=== PATIENT | female | born 2005 | race Caucasian/White ===

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

== ENCOUNTER 2025-01-11 10:05 | Emergency (ER) | payer BC, OTHER ==
[2025-01-11 10:18] VITALS: TEMP 97.6
--- NOTE | 2025-01-11 10:40 | ERPHSYRPT ---
- History of Present Illness Time Seen by Provider: 01/11/25 10:15 Historian: patient Exam Limitations: no limitations Patient Subjective Stated Complaint: pt c/o of medial epigastric chest pain that radiates under darvin breasts Triage Nursing Assessment: Pt brought to the ER by her step mom, vitals wnl, rates pain as 7/10, pulses normal, skin n/w/d, hx of open heart as an , no difficulty breathing, still has gall bladder, pain woke her from sleeping, doesn't appear to be in any distress Physician History: 19-year-old female with history of tetralogy of Fallot repair presented in the ER with complaint of substernal chest pain waking her from sleep this morning almost 4 to 5 hours ago, moderate intensity sharp nature, no significant aggravating or relieving factors. Reports no associated palpitations or sh ortness of breath. No cough fever or chills reported. No nausea or vomiting. Aspirin Treatment Today: no aspirin today Allergies/Adverse Reactions: No Known Drug Allergies Allergy (Verified 01/11/25 10:18) Home Medications: Hydrocodone/Acetaminophen [Hydrocodone-Acetamin 5-325 mg] 1 tab PO UD 01/11/25 [History] Venlafaxine HCl [Venlafaxine HCl ER] 150 mg PO DAILY 01/11/25 [History] Hx Tetanus, Diphtheria Vaccination/Date Given: Yes Hx Influenza Vaccination/Date Given: Yes Hx Pneumococcal Vaccination/Date Given: No Travel Risk - International Travel Have you traveled outside of the country in past 3 weeks: No - Emerging Infectious Disease Are you exhibiting symptoms associated with any current EIDs: No - Review of Systems Constitutional: No Symptoms Eyes: No Symptoms Ears, Nose, & Throat: No Symptoms Respiratory: No Symptoms Cardiac: Chest Pain Abdominal/Gastrointestinal: No Symptoms Genitourinary Symptoms: No Symptoms Musculoskeletal: No Symptoms Skin: No Symptoms Neurological: No Symptoms Endocrine: No Symptoms Hematologic/Lymphatic: No Symptoms - Past Medical History Pertinent Past Medical History: Yes Neurological History: No Pertinent History ENT History: No Pertinent History Cardiac History: Other Respiratory History: No Pertinent History Endocrine Medical History: No Pertinent History Musculoskeletal History: No Pertinent History GI Medical History: GERD History: No Pertinent History Psycho-Social History: No Pertinent History Female Reproductive Disorders: No Pertinent History Other Medical History: tetralogy of fallot with repair done - Past Surgical History Past Surgical History: Yes Neuro Surgical History: No Pertinent History Cardiac: Other Respiratory: No Pertinent History Gastrointestinal: No Pertinent History Genitourinary: No Pertinent History Musculoskeletal: No Pertinent History Female Surgical History: No Pertinent History Other Surgical History: open heart surgery as an - Female History Hx Last Menstrual Period: approx one month Hx Now: No - Social History Smoking Status: Never smoker Exposure to second hand smoke: No Drug Use: none - Social Determinants of Health Will the patient participate in the screening: Yes Do you worry about a steady place to live?: No Do you have any problems with any of the following?: No known problems In the past 12 months,have you had to go without utilities?: No Transportation Issues: No Has anyone in your support network made you feel unsafe?: No Have you or anyone in your house had to go w/o enough food: No - Nursing Vital Signs Nursing Vital Signs: Initial Vital Signs Temperature 97.6 F 01/11/25 10:07 Pulse Rate 79 01/11/25 10:07 Blood Pressure 135/71 01/11/25 10:07 O2 Sat by Pulse Oximetry 99 01/11/25 10:07 Pain Scale Pain Intensity 8 - Physical Exam General Appearance: no apparent distress Eye Exam: PERRL/EOMI Ears, Nose, Throat Exam: normal ENT inspection Neck Exam: normal inspection, full range of motion Respiratory Exam: normal breath sounds, lungs clear Cardiovascular Exam: regular rate/rhythm, normal heart sounds Gastrointestinal/Abdomen Exam: soft, normal bowel sounds, No tenderness Back Exam: normal inspection Extremity Exam: normal inspection, normal range of motion Neurologic Exam: alert, oriented x 3, cooperative Skin Exam: normal color SpO2 Interpretation: normal SpO2: 99 O2 Delivery: Room Air - Course EKG Interpreted by Me: RATE (82), Sinus Rhythm, Left Yulan Deviation, LAFB, NORMAL INTERVALS, Non-specific ST Changes Ordered Tests: Active Orders 24 hr Category Date Time Status Roll On Worker STAT Care 01/11/25 10:38 Completed EKG-ER Only STAT Care 01/11/25 10:37 Completed IV Insertion STAT Care 01/11/25 10:37 Completed ABDOMEN WITH CONTRAST [CT] Stat Exams 01/11/25 12:02 Completed CHEST 1 VIEW (PORTABLE) Stat Exams 01/11/25 10:38 Taken CHEST WITH CONTRAST [CT] Stat Exams 01/11/25 12:02 Completed CBC W DIFF Stat Lab 01/11/25 10:30 Completed CMP Stat Lab 01/11/25 10:30 Completed D-DIMER QUANTITATIVE Stat Lab 01/11/25 10:30 Completed HCG QUALITATIVE, SERUM Stat Lab 01/11/25 10:30 Completed LIPASE Stat Lab 01/11/25 10:30 Completed POCT GLUCOSE Stat Lab 01/11/25 10:13 Completed TROPONIN Q4H Lab 01/11/25 10:30 Completed TROPONIN Q4H Lab 01/11/25 14:25 Completed Medication Summary Discontinued Medications Generic Name Dose Route Start Last Admin Trade Name Freq PRN Reason Stop Dose Admin Al Hydrox/Mg Hydrox/Simethicone Confirm 01/11/25 11:09 Mag Hydrox/Al Hydrox/Simeth 30 Ml Udcup Administered 01/11/25 11:10 Dose 30 ml .ROUTE .STK-MED ONE Aspirin 324 mg 01/11/25 10:37 01/11/25 11:13 Aspirin 81 Mg Tab.Chew PO 01/11/25 10:38 324 mg STAT ONE Administration Aspirin Confirm 01/11/25 11:09 Aspirin 81 Mg Tab.Chew Administered 01/11/25 11:10 Dose 324 mg .ROUTE .STK-MED ONE Lidocaine HCl Confirm 01/11/25 11:09 Lidocaine Hcl 2% Viscous 15 Ml Udcup Administered 01/11/25 11:10 Dose 15 ml .ROUTE .STK-MED ONE Magnesium Hydroxide 45 ml 01/11/25 10:38 01/11/25 11:13 Mag Hydrx/Alum Hyd/Simeth/Lido 45 Ml Bottle PO 01/11/25 10:39 45 ml STAT ONE Administration Lab/Rad Data: Laboratory Result Diagrams 01/11/25 10:30 01/11/25 10:30 Laboratory Results 01/11/25 01/11/25 01/11/25 Range/Units 14:25 10:30 10:30 WBC (3.98-10.04) x10^3/uL RBC (3.93-5.22) x10^6/uL Hgb (11.2-15.7) g/dL Hct (34.1-44.9) % MCV (79.4-94.8) fL MCH (25.6-32.2) pg MCHC (32.2-35.5) g/dL RDW (11.7-14.4) % Plt Count (182-369) x10^3/uL MPV (9.4-12.3) fL Gran % (34.0-71.1) % Immature Gran % (Auto) (0.001-0.429) % Nucleat RBC Rel Count (0.00-0.2) % Eos # (Auto) (0.04-0.36) x10^3/uL Immature Gran # (Auto) (0.001-0.031) x10^3u/L Absolute Lymphs (auto) (1.18-3.74) x10^3/uL Absolute Monos (auto) (0.24-0.86) x10^3/uL Absolute Nucleated RBC (0.00-0.012) x10^3u/L Lymphocytes % (19.3-51.7) % Monocytes % (4.7-12.5) % Eosinophils % (0.7-5.8) % Basophils % (0.1-1.2) % Absolute Granulocytes (1.56-6.13) x10^3/uL Basophils # (0.01-0.08) x10^3/uL D-Dimer (0.0-0.50) mg/L Sodium (135-145) mmol/L Potassium (3.5-5.1) mmol/L Chloride (98-107) mmol/L Carbon Dioxide (22-30) mmol/L Anion Gap (5-15) MEQ/L BUN (7-17) mg/dL Creatinine (0.52-1.04) mg/dL Estimated GFR ML/MIN Glucose (74-106) mg/dL POC Glucometer (74 to 106) mg/dL Calcium (8.4-10.2) mg/dL Total Bilirubin (0.2-1.3) mg/dL AST (14-36) U/L ALT (0-35) U/L Alkaline Phosphatase (38-126) U/L Troponin I < 0.012 < 0.012 (0.000-0.033) ng/mL Serum Total Protein (6.3-8.2) g/dL Albumin (3.5-5.0) g/dL Lipase (23-300) U/L Serum HCG, Qual NEGATIVE (NEGATIVE) 01/11/25 01/11/25 01/11/25 Range/Units 10:30 10:30 10:30 WBC 6.0 (3.98-10.04) x10^3/uL RBC 4.49 (3.93-5.22) x10^6/uL Hgb 12.5 (11.2-15.7) g/dL Hct 38.3 (34.1-44.9) % MCV 85.3 (79.4-94.8) fL MCH 27.8 (25.6-32.2) pg MCHC 32.6 (32.2-35.5) g/dL RDW 13.5 (11.7-14.4) % Plt Count 231 (182-369) x10^3/uL MPV 9.5 (9.4-12.3) fL Gran % 71.2 H (34.0-71.1) % Immature Gran % (Auto) 0.3 (0.001-0.429) % Nucleat RBC Rel Count 0.0 (0.00-0.2) % Eos # (Auto) 0 L (0.04-0.36) x10^3/uL Immature Gran # (Auto) 0.02 (0.001-0.031) x10^3u/L Absolute Lymphs (auto) 1.40 (1.18-3.74) x10^3/uL Absolute Monos (auto) 0.28 (0.24-0.86) x10^3/uL Absolute Nucleated RBC 0.00 (0.00-0.012) x10^3u/L Lymphocytes % 23.5 (19.3-51.7) % Monocytes % 4.7 (4.7-12.5) % Eosinophils % 0.0 L (0.7-5.8) % Basophils % 0.3 (0.1-1.2) % Absolute Granulocytes 4.23 (1.56-6.13) x10^3/uL Basophils # 0.02 (0.01-0.08) x10^3/uL D-Dimer 0.56 H (0.0-0.50) mg/L Sodium 138 (135-145) mmol/L Potassium 4.2 (3.5-5.1) mmol/L Chloride 105 (98-107) mmol/L Carbon Dioxide 24 (22-30) mmol/L Anion Gap 12.9 (5-15) MEQ/L BUN 15 (7-17) mg/dL Creatinine 0.64 (0.52-1.04) mg/dL Estimated GFR 128.9 ML/MIN Glucose 160 H (74-106) mg/dL POC Glucometer (74 to 106) mg/dL Calcium 9.2 (8.4-10.2) mg/dL Total Bilirubin 0.60 (0.2-1.3) mg/dL AST 220 H (14-36) U/L ALT 165 H (0-35) U/L Alkaline Phosphatase 78 (38-126) U/L Troponin I (0.000-0.033) ng/mL Serum Total Protein 7.4 (6.3-8.2) g/dL Albumin 4.5 (3.5-5.0) g/dL Lipase 255 (23-300) U/L Serum HCG, Qual (NEGATIVE) 01/11/25 Range/Units 10:13 WBC (3.98-10.04) x10^3/uL RBC (3.93-5.22) x10^6/uL Hgb (11.2-15.7) g/dL Hct (34.1-44.9) % MCV (79.4-94.8) fL MCH (25.6-32.2) pg MCHC (32.2-35.5) g/dL RDW (11.7-14.4) % Plt Count (182-369) x10^3/uL MPV (9.4-12.3) fL Gran % (34.0-71.1) % Immature Gran % (Auto) (0.001-0.429) % Nucleat RBC Rel Count (0.00-0.2) % Eos # (Auto) (0.04-0.36) x10^3/uL Immature Gran # (Auto) (0.001-0.031) x10^3u/L Absolute Lymphs (auto) (1.18-3.74) x10^3/uL Absolute Monos (auto) (0.24-0.86) x10^3/uL Absolute Nucleated RBC (0.00-0.012) x10^3u/L Lymphocytes % (19.3-51.7) % Monocytes % (4.7-12.5) % Eosinophils % (0.7-5.8) % Basophils % (0.1-1.2) % Absolute Granulocytes (1.56-6.13) x10^3/uL Basophils # (0.01-0.08) x10^3/uL D-Dimer (0.0-0.50) mg/L Sodium (135-145) mmol/L Potassium (3.5-5.1) mmol/L Chloride (98-107) mmol/L Carbon Dioxide (22-30) mmol/L Anion Gap (5-15) MEQ/L BUN (7-17) mg/dL Creatinine (0.52-1.04) mg/dL Estimated GFR ML/MIN Glucose (74-106) mg/dL POC Glucometer 154 H (74 to 106) mg/dL Calcium (8.4-10.2) mg/dL Total Bilirubin (0.2-1.3) mg/dL AST (14-36) U/L ALT (0-35) U/L Alkaline Phosphatase (38-126) U/L Troponin I (0.000-0.033) ng/mL Serum Total Protein (6.3-8.2) g/dL Albumin (3.5-5.0) g/dL Lipase (23-300) U/L Serum HCG, Qual (NEGATIVE) - Progress Progress: improved, re-examined Air Movement: good Progress Note: 01/11/25 14:32 19-year-old is evaluated in the ER for epigastric pain with palpitations and pain with deep breathing. EKG showed sinus rhythm with no acute ST elevations, Negative troponins, normal white count, chemistries fairly unremarkable except for elevated transaminases Patient has some tenderness in right upper quadrant as well. Normal lipase. Has elevated D-dimer and obtain CT chest with contrast PE protocol and CT abdomen with contrast which are all negative for pulmonary embolism, pneumonia, pneumothorax, acute cholecystitis, pancreatitis o any other abdominal thoracic findings. Patient pain is resolved after GI cocktail, I believe patient's symptoms are GERD with esophagitis, will start her on Protonix and outpatient follow-up recommended. She has a low heart score with her pain going down since morning and a negative troponin, do not think needs second troponin to rule out ACS. Recommended outpatient follow-up. Discussed signs symptoms of worsening needing return to ER which she seems understanding. Stable for discharge. Blood Culture(s) Obtained: No Antibiotics given: No Counseled pt/family regarding: lab results, diagnosis, need for follow-up, rad results Medical Desision Making - Independent Historian Additional History obtained from: Mother - Diagnostic Testing Diagnostic test were ordered, analyzed, and reviewed by me: Yes Radiological Interpretation: Reviewed by me, Teleradiologist Report - Risk of complications The pt has a mod risk of morbidity or mortality based on: Need for prescription drug management - Departure Departure Disposition: Home Clinical Impression: GERD with esophagitis, Atypical chest pain, Elevated transaminase level Condition: Stable Critical Care Time: No Referrals: MICHAEL BAUTISTA [Primary Care Provider] - Follow up with PCP 1 day Instructions: Acid reflux and GERD in adults Additional Instructions: Take Tylenol as needed. Follow-up with primary care for reevaluation. Return to ER for any worsening. Prescriptions: PANTOPRAZOLE 40 mg Tablet [Protonix 40MG Tablet] 40 mg PO QAM #30 tab
[2025-01-11 10:55] LABS: Absolute Neutrophil Ct (ANC) 4.23 x10^3/uL (1.56-6.13); BASOPHIL % 0.3 % (0.1-1.2); Basophil (Absolute #) 0.02 x10^3/uL (0.01-0.08); Eosinophil (Absolute #) 0 x10^3/uL (0.04-0.36); Hematocrit 38.3 % (34.1-44.9); Hemoglobin 12.5 g/dL (11.2-15.7); IMMATURE GRAN # 0.02 x10^3u/L (0.001-0.031); IMMATURE GRAN % 0.3 % (0.001-0.429); Lymphocytes % 23.5 % (19.3-51.7); Mean Cell Volume 85.3 fL (79.4-94.8); Mean Corpuscular Hemoglobin 27.8 pg (25.6-32.2); Mean Corpuscular Hgb Concent. 32.6 g/dL (32.2-35.5); Mean Platelet Volume 9.5 fL (9.4-12.3); Monocyte (Absolute #) 0.28 x10^3/uL (0.24-0.86); Monocytes % 4.7 % (4.7-12.5); Neutrophil % 71.2 % (34.0-71.1); Platelet Count 231 x10^3/uL (182-369); Red Blood Count 4.49 x10^6/uL (3.93-5.22); Red Cell Distribution Width 13.5 % (11.7-14.4)
[2025-01-11] MEDS ORDERED: MAALOX ES 30 ML UNIT DOSE ONE (11:09)
[2025-01-11] MEDS ORDERED: BABY ASPIRIN 81 MG CHEW ONE (11:09)
[2025-01-11] MEDS ORDERED: XYLOCAINE VISCOUS 2% 15 ML CUP ONE (11:09)
[2025-01-11] MEDS: BABY ASPIRIN 81 MG CHEW PO ONE (11:13)
[2025-01-11] MEDS: GI COCKTAIL 45 ML (Maalox/Lidocaine) PO ONE (11:13)
[2025-01-11 11:21] LABS: HCG SERUM TEST NEGATIVE (NEGATIVE)
[2025-01-11 11:22] LABS: ALBUMIN 4.5 g/dL (3.5-5.0); ANION GAP 12.9 MEQ/L (5-15); BILIRUBIN,TOTAL 0.6 mg/dL (0.2-1.3); Calcium 9.2 mg/dL (8.4-10.2); Creatinine 1 0.64 mg/dL (0.52-1.04); EST GLOMERULAR FILTRATION RATE 128.9 ML/MIN; Potassium 4.2 mmol/L (3.5-5.1); Total Protein 7.4 g/dL (6.3-8.2)
--- NOTE | 2025-01-11 14:28 | XRAY ---
CLINICAL HISTORY: abd pain, r/o cholecystitis COMPARISON: No prior studies are available for comparison. TECHNIQUE: CT of the abdomen was performed with intravenous contrast, with the following protocol: axial images, and reconstructed coronal and sagittal images. contrast-enhanced images acquired in arterial and venous phases. 80 cc of isovue 370 was administered using automated injection techniques. One of the following dose reduction techniques was utilized for this exam: Automated exposure control, adjustment of the mA and/or kV according to patient size, and use of iterative reconstruction. CTDI: 9.08 mGy. DLP: 1367.90 mGy-cm. FINDINGS: Liver: Enlarged liver, right lobe span of 17 cm. with fatty parenchyma. Normal in shape. No focal lesions, cysts, or masses were identified. The enhancement pattern is normal in arterial and venous phases. Gallbladder and Biliary System: The gallbladder is normal in size and shape. No wall thickening, pericholecystic fluid, or gallstones were identified. Pancreas: Pancreatic head, body, and tail are visualized and appear normal in size and density. No pancreatic masses, cysts, or calcifications were noted. Enhancement is normal in arterial and venous phases. Spleen: Normal in size, shape, and density. No splenic lesions or masses were identified. Enhancement is normal in arterial and venous phases. Kidneys and Adrenal Glands: Both kidneys are normal in size, shape, and position. Cortical thickness is within normal limits. No renal calculi or hydronephrosis. Adrenal glands are unremarkable. Enhancement is normal in arterial and venous phases. Appendix: No dioni appendiceal fat stranding, and without an appendicolith. No evidence of appendiceal abscess or perforation. Abdominal Aorta and Vessels: The abdominal aorta and major branches are patent without evidence of an aneurysm or significant atherosclerosis. Enhancement is normal in arterial and venous phases. Peritoneal and Retroperitoneal Structures: No free fluid or abnormal fluid collections were identified within the abdomen or pelvis. No lymphadenopathy was noted. IMPRESSION: 1. Fatty hepatomegaly. 2. Overall, CT abdomen with contrast demonstrates normal findings without evidence of acute intra-abdominal pathology. 3. Clinical correlation is recommended. Electronically Signed by: Denisha Ricketts MD. (01/11/2025 14:24:11 EST)
--- NOTE | 2025-01-11 14:30 | XRAY ---
CLINICAL HISTORY: cp, PE ? COMPARISON: None. TECHNIQUE: Contiguous 3.[address] angiographic images of the chest were acquired with the administration of 80 cc Isovue-370 intravenous contrast. Coronal and sagittal reconstructions were obtained. One of these 3D techniques was utilized: Maximum Intensity Pixel (MIP), 3D Reconstructed Images, Volume Rendered Images, Surface Shaded Rendering. One of the following dose reduction techniques were utilized for this exam: Automated exposure control, adjustment of the mA and/or kV according to patient size, and use of iterative reconstruction. CTDI: 47 mGy DLP: 1367.90 mGy-cm FINDINGS: Aorta: The thoracic aorta is normal in caliber. No evidence of aneurysm, dissection, or significant atherosclerotic changes. The aortic arch and descending thoracic aorta are unremarkable. Pulmonary Arteries: Pulmonary arteries are normal in size and opacification. No evidence of pulmonary embolism. No stenosis or filling defects. Superior Vena Cava (SVC) and Inferior Vena Cava (IVC): Normal opacification and caliber. No evidence of thrombus or obstruction. Coronary Arteries: Coronary arteries are well-opacified. No significant stenosis or atherosclerotic changes. Mediastinum: No mediastinal mass or lymphadenopathy. Normal appearance of the thymus. Heart: Normal size and morphology of the heart. No pericardial effusion. Lungs: Lungs are clear with no evidence of consolidation, nodules, or masses. No pleural effusion or thickening. Bones: No fractures or lytic/sclerotic lesions of the visualized bony structures. Normal alignment and bone density. Soft Tissues: Normal appearance of the visualized soft tissues. No abnormal masses or fluid collections. IMPRESSION: 1. Unremarkable CT study of the chest, no signs of pulmonary embolism noted. 2. No evidence of significant vascular abnormalities. Electronically Signed by: Denisha Ricketts MD. (01/11/2025 14:27:00 EST)
[2025-01-11 14:36] VITALS: O2SAT 99
[2025-01-11 14:54] VITALS: BP 113/65; PULSE 77; RESP 18
--- NOTE | 2025-01-11 23:37 | XRAY ---
Indication: Chest pain. Comparison: February 08, 2019 Portable chest again demonstrates normal heart and lungs. Bony thorax intact with sternotomy wires. No new/acute findings.
== END 2025-01-11 14:55 | disposition home or self-care (01) ==
LOC: ED 10:05
DX: R07.89 Other chest pain (principal); K21.00 Gastro-esophageal reflux disease with esophagitis, without bleeding; R74.01 Elevation of levels of liver transaminase levels; Z79.891 Long term (current) use of opiate analgesic; Z79.899 Other long term (current) drug therapy
CPT/HCPCS: 36415; 71045; 71260; 74160; 80053; 82947; 83690; 84484; 84703; 85025; 85379; 93005; 93041; 99284; 99285; A9270-GY

== ENCOUNTER 2025-01-19 05:03 | Emergency (ER) | payer BC, OTHER ==
[2025-01-19 05:19] VITALS: TEMP 97.6
--- NOTE | 2025-01-19 05:45 | ERPHSYRPT ---
- History of Present Illness Historian: patient Exam Limitations: no limitations Patient Subjective Stated Complaint: pt states that she was awaken by chest pain Triage Nursing Assessment: pt ambulated into the er; pt is axo x4; c/o chest pain; pt states 7/10 pain to chest; pt states pain radiates to epigastric region; mumur present with auscultation; strong darvin radial pulses; strong darvin pedal pulses; no edema present; pt denies SOB, no respiratory distress present; skin warm, diaphoretic, pink; vitals wnl Hx Tetanus, Diphtheria Vaccination/Date Given: Yes Hx Influenza Vaccination/Date Given: Yes Hx Pneumococcal Vaccination/Date Given: No Immunizations Up to Date: No <ALFREDO WALLER - Last Filed: 01/19/25 06:08> <JACKELIN MESSER - Last Filed: 01/19/25 11:13> - History of Present Illness Physician History: Patient has epigastric pain. It stays pretty much below the diaphragm. It radiates to the right a little bit as well as mildly to the left. She was here few weeks ago for similar symptoms. The symptoms been going on for about 5 hours now. Nothing seems to make them better or worse. She has some nausea and a little bit of diaphoresis. She has a history of tetralogy of Fallot with the repairs. Her last visit was reviewed. They did an EKG did not show any acute changes today's is not different than that when. They also got serial troponins and those were negative. Her transaminases were high at her last visit.Eating does not seem to bring the symptoms on. She has had 2 episodes of this prior to today. The last when she came in for the 1 before that she did not. She says they usually last about 4 to 5 hours and then resolved. She does not think that eating seems to make them worse. The pain is somewhat intense. Is described as sharp stabbing (ALFREDO WALLER) Allergies/Adverse Reactions: No Known Drug Allergies Allergy (Verified 01/19/25 05:05) Home Medications: Venlafaxine HCl [Venlafaxine HCl ER] 150 mg PO DAILY 01/11/25 [History] Travel Risk - International Travel Have you traveled outside of the country in past 3 weeks: No - Emerging Infectious Disease Are you exhibiting symptoms associated with any current EIDs: No <ALFREDO WALLER - Last Filed: 01/19/25 06:08> - Review of Systems Constitutional: No Symptoms Eyes: No Symptoms Respiratory: No Symptoms Cardiac: No Symptoms Abdominal/Gastrointestinal: Nausea, No Vomiting, No Diarrhea, No Hematochezia, No Melena, No Appetite Changes Genitourinary Symptoms: No Symptoms <ALFREDO WALLER - Last Filed: 01/19/25 06:08> - Past Medical History Pertinent Past Medical History: Yes Neurological History: No Pertinent History ENT History: No Pertinent History Cardiac History: Other Respiratory History: No Pertinent History Endocrine Medical History: No Pertinent History Musculoskeletal History: No Pertinent History GI Medical History: GERD History: No Pertinent History Psycho-Social History: No Pertinent History Female Reproductive Disorders: No Pertinent History Other Medical History: tetralogy of fallot with repair done - Past Surgical History Past Surgical History: Yes Neuro Surgical History: No Pertinent History Cardiac: Other Respiratory: No Pertinent History Gastrointestinal: No Pertinent History Genitourinary: No Pertinent History Musculoskeletal: No Pertinent History Female Surgical History: No Pertinent History Other Surgical History: open heart surgery as an , bt shunt - Female History Hx Last Menstrual Period: 2 months ago Hx Now: No (hcg serum negative 01/15/25) - Social History Smoking Status: Never smoker Exposure to second hand smoke: No Drug Use: none - Social Determinants of Health Will the patient participate in the screening: Yes Do you worry about a steady place to live?: No Do you have any problems with any of the following?: No known problems In the past 12 months,have you had to go without utilities?: No Transportation Issues: No Has anyone in your support network made you feel unsafe?: No Have you or anyone in your house had to go w/o enough food: No <ALFREDO WALLER - Last Filed: 01/19/25 06:08> - Physical Exam General Appearance: no apparent distress Eye Exam: PERRL/EOMI Ears, Nose, Throat Exam: normal ENT inspection Neck Exam: normal inspection Respiratory Exam: normal breath sounds Cardiovascular Exam: other (Coarse loud holosystolic murmur) Gastrointestinal/Abdomen Exam: soft, tenderness (Epigastrium And the upper abdomen.) Back Exam: normal inspection, normal range of motion SpO2: 100 <ALFREDO WALLER - Last Filed: 01/19/25 06:08> - Nursing Vital Signs Nursing Vital Signs: Initial Vital Signs Pulse Rate 73 01/19/25 05:04 Respiratory Rate 23 01/19/25 05:04 Blood Pressure 119/76 01/19/25 05:04 O2 Sat by Pulse Oximetry 99 01/19/25 05:04 Pain Scale Pain Intensity 0 Ordered Tests: Active Orders 24 hr Category Date Time Status EKG-ER Only STAT Care 01/19/25 05:45 Active ABDOMEN WITHOUT CONTRAST [CT] Stat Exams 01/19/25 05:45 Completed CBC W DIFF Stat Lab 01/19/25 06:15 Completed CMP Stat Lab 01/19/25 06:00 Completed LIPASE Stat Lab 01/19/25 06:00 Completed POCT GLUCOSE Stat Lab 01/19/25 05:21 Completed TROPONIN Q4H Lab 01/19/25 06:00 Completed TROPONIN Q4H Lab 01/19/25 09:48 Completed TROPONIN Q4H Lab 01/19/25 13:45 Ordered Medication Summary Discontinued Medications Generic Name Dose Route Start Last Admin Trade Name Hiraq PRN Reason Stop Dose Admin Acetaminophen 975 mg 01/19/25 08:29 01/19/25 08:36 Acetaminophen 325 Mg Tablet PO 01/19/25 08:30 975 mg STAT ONE Administration Acetaminophen Confirm 01/19/25 08:33 Acetaminophen 325 Mg Tablet Administered 01/19/25 08:34 Dose 975 mg .ROUTE .STK-MED ONE Al Hydrox/Mg Hydrox/Simethicone Confirm 01/19/25 06:19 Mag Hydrox/Al Hydrox/Simeth 30 Ml Udcup Administered 01/19/25 06:20 Dose 30 ml .ROUTE .STK-MED ONE Lidocaine HCl Confirm 01/19/25 06:19 Lidocaine Hcl 2% Viscous 15 Ml Udcup Administered 01/19/25 06:20 Dose 15 ml .ROUTE .STK-MED ONE Magnesium Hydroxide 45 ml 01/19/25 05:45 01/19/25 06:31 Mag Hydrx/Alum Hyd/Simeth/Lido 45 Ml Bottle PO 01/19/25 05:46 45 ml STAT ONE Administration Ondansetron HCl 4 mg 01/19/25 06:03 01/19/25 06:03 Ondansetron Hcl 4 Mg/2 Ml Vial IV 01/19/25 06:04 4 mg STAT ONE Administration Ondansetron HCl Confirm 01/19/25 06:02 Ondansetron Hcl 4 Mg/2 Ml Vial Administered 01/19/25 06:03 Dose 4 mg .ROUTE .STK-[employer] ONE Prochlorperazine Edisylate 5 mg 01/19/25 08:29 01/19/25 08:35 Prochlorperazine Edisylate 10 Mg/2 Ml Vial IV 01/19/25 08:30 5 mg STAT ONE Administration Prochlorperazine Edisylate Confirm 01/19/25 08:33 Prochlorperazine Edisylate 10 Mg/2 Ml Vial Administered 01/19/25 08:34 Dose 10 mg .ROUTE .Sonopia-[employer] ONE Lab/Rad Data: Laboratory Result Diagrams 01/19/25 06:15 01/19/25 06:00 Laboratory Results 01/19/25 01/19/25 01/19/25 Range/Units 09:48 08:30 06:15 WBC 6.3 (3.98-10.04) x10^3/uL RBC 4.66 (3.93-5.22) x10^6/uL Hgb 12.9 (11.2-15.7) g/dL Hct 40.9 (34.1-44.9) % MCV 87.8 (79.4-94.8) fL MCH 27.7 (25.6-32.2) pg MCHC 31.5 L (32.2-35.5) g/dL RDW 14.3 (11.7-14.4) % Plt Count 232 (182-369) x10^3/uL MPV 9.6 (9.4-12.3) fL Gran % 65.7 (34.0-71.1) % Immature Gran % (Auto) 0.6 H (0.001-0.429) % Nucleat RBC Rel Count 0.0 (0.00-0.2) % Eos # (Auto) 0.01 L (0.04-0.36) x10^3/uL Immature Gran # (Auto) 0.04 H (0.001-0.031) x10^3u/L Absolute Lymphs (auto) 1.59 (1.18-3.74) x10^3/uL Absolute Monos (auto) 0.49 (0.24-0.86) x10^3/uL Absolute Nucleated RBC 0.00 (0.00-0.012) x10^3u/L Lymphocytes % 25.4 (19.3-51.7) % Monocytes % 7.8 (4.7-12.5) % Eosinophils % 0.2 L (0.7-5.8) % Basophils % 0.3 (0.1-1.2) % Absolute Granulocytes 4.12 (1.56-6.13) x10^3/uL Basophils # 0.02 (0.01-0.08) x10^3/uL Sodium (135-145) mmol/L Potassium (3.5-5.1) mmol/L Chloride (98-107) mmol/L Carbon Dioxide (22-30) mmol/L Anion Gap (5-15) MEQ/L BUN (7-17) mg/dL Creatinine (0.52-1.04) mg/dL Estimated GFR ML/MIN Glucose (74-106) mg/dL POC Glucometer (74 to 106) mg/dL Calcium (8.4-10.2) mg/dL Total Bilirubin (0.2-1.3) mg/dL AST (14-36) U/L ALT (0-35) U/L Alkaline Phosphatase (38-126) U/L Troponin I < 0.012 (0.000-0.033) ng/mL Serum Total Protein (6.3-8.2) g/dL Albumin (3.5-5.0) g/dL Lipase (23-300) U/L Influenza Type A Ag NEGATIVE (NEGATIVE) Influenza Type B Ag NEGATIVE (NEGATIVE) RSV (PCR) NEGATIVE (NEGATIVE) SARS-CoV-2 (PCR) NEGATIVE (NEGATIVE) 01/19/25 01/19/25 Range/Units 06:00 05:21 WBC (3.98-10.04) x10^3/uL RBC (3.93-5.22) x10^6/uL Hgb (11.2-15.7) g/dL Hct (34.1-44.9) % MCV (79.4-94.8) fL MCH (25.6-32.2) pg MCHC (32.2-35.5) g/dL RDW (11.7-14.4) % Plt Count (182-369) x10^3/uL MPV (9.4-12.3) fL Gran % (34.0-71.1) % Immature Gran % (Auto) (0.001-0.429) % Nucleat RBC Rel Count (0.00-0.2) % Eos # (Auto) (0.04-0.36) x10^3/uL Immature Gran # (Auto) (0.001-0.031) x10^3u/L Absolute Lymphs (auto) (1.18-3.74) x10^3/uL Absolute Monos (auto) (0.24-0.86) x10^3/uL Absolute Nucleated RBC (0.00-0.012) x10^3u/L Lymphocytes % (19.3-51.7) % Monocytes % (4.7-12.5) % Eosinophils % (0.7-5.8) % Basophils % (0.1-1.2) % Absolute Granulocytes (1.56-6.13) x10^3/uL Basophils # (0.01-0.08) x10^3/uL Sodium 143 (135-145) mmol/L Potassium 4.5 (3.5-5.1) mmol/L Chloride 106 (98-107) mmol/L Carbon Dioxide 22 (22-30) mmol/L Anion Gap 19.6 H (5-15) MEQ/L BUN 14 (7-17) mg/dL Creatinine 0.68 (0.52-1.04) mg/dL Estimated GFR 127.0 ML/MIN Glucose 129 H (74-106) mg/dL POC Glucometer 130 H (74 to 106) mg/dL Calcium 9.4 (8.4-10.2) mg/dL Total Bilirubin 0.50 (0.2-1.3) mg/dL AST 85 H (14-36) U/L ALT 97 H (0-35) U/L Alkaline Phosphatase 71 (38-126) U/L Troponin I < 0.012 (0.000-0.033) ng/mL Serum Total Protein 7.5 (6.3-8.2) g/dL Albumin 4.6 (3.5-5.0) g/dL Lipase 195 (23-300) U/L Influenza Type A Ag (NEGATIVE) Influenza Type B Ag (NEGATIVE) RSV (PCR) (NEGATIVE) SARS-CoV-2 (PCR) (NEGATIVE) <ALFREDO WALLER - Last Filed: 01/19/25 06:08> - Progress Progress: improved, pain not gone completely <JACKELIN MESSER - Last Filed: 01/19/25 11:13> - Progress Progress Note: On the differential is biliary colic, reflux, coronary disease,Bowel obstruction.I reviewed her last note. It looks like they were thinking possibly reflux or biliary colic. She has a HIDA scan scheduled for this week. 01/19/25 06:08 (ALFREDO WALLER) 01/19/25 07:32 I assumed care from Dr Waller at 0700 01/19/25 08:23 CT abd/pel showed: no acute abnormality mildly enlarged liver consistent w/ fatty liver pt still complains of mild epigastric discomfort pt reports sinus congestion and cough for the past several days, also complains of dysuria and urinary frequency x 3wks will order covid/flu swabs and check UA 01/19/25 10:56 repeat trop negative viral swabs negative plan for discharge home PCP follow up scheduled for 01/24/25 recommend plenty of oral hydration w/ clear liquids and electrolyte containing fluids recommend tylenol/ibuprofen for discomfort recommend bland diet and avoiding spicy foods return to ED if: symptoms worsen, develop difficulty breathing, develop bloody vomiting (JACKELIN MESSER) Medical Desision Making - Diagnostic Testing Diagnostic test were ordered, analyzed, and reviewed by me: Yes Radiological Interpretation: Reviewed by me, Teleradiologist Report - Risk of complications Minimal Risk: Minimal risk of morbidity <JACKELIN MESSER - Last Filed: 01/19/25 11:13> <ALFREDO WALLER - Last Filed: 01/19/25 06:08> - Departure Critical Care Time: No <JACKELIN MESSER - Last Filed: 01/19/25 11:13> - Departure Clinical Impression: Epigastric pain Condition: Stable Referrals: AYLIN BRANHAM MD [Primary Care Provider] - Follow up/PCP as directed Instructions: Chest pain in adults - ED discharge instructions Additional Instructions: plan for discharge home PCP follow up scheduled for 01/24/25 recommend plenty of oral hydration w/ clear liquids and electrolyte containing fluids recommend tylenol/ibuprofen for discomfort recommend bland diet and avoiding spicy foods return to ED if: symptoms worsen, develop difficulty breathing, develop bloody vomiting
[2025-01-19] MEDS ORDERED: Zofran 4 MG/2 ML VIAL ONE (06:02)
[2025-01-19] MEDS: Zofran 4 MG/2 ML VIAL IV ONE (06:03)
[2025-01-19 06:15] LABS: ALBUMIN 4.6 g/dL (3.5-5.0); ALKALINE PHOSPHATASE 71 U/L (38-126); ANION GAP 19.6 MEQ/L (5-15); BLOOD UREA NITROGEN 14 mg/dL (7-17); CHLORIDE 106 mmol/L (98-107); Calcium 9.4 mg/dL (8.4-10.2); Carbon Dioxide 22 mmol/L (22-30); Creatinine 1 0.68 mg/dL (0.52-1.04); Glucose 129 mg/dL (74-106); LIPASE 195 U/L (23-300); Potassium 4.5 mmol/L (3.5-5.1); SGOT/AST 85 U/L (14-36); SGPT/ALT 97 U/L (0-35); SODIUM 143 mmol/L (135-145); TROPONIN < 0.012 ng/mL (0.000-0.033); Total Protein 7.5 g/dL (6.3-8.2)
[2025-01-19] MEDS ORDERED: MAALOX ES 30 ML UNIT DOSE ONE (06:19)
[2025-01-19] MEDS ORDERED: XYLOCAINE VISCOUS 2% 15 ML CUP ONE (06:19)
[2025-01-19 06:24] LABS: Absolute Neutrophil Ct (ANC) 4.12 x10^3/uL (1.56-6.13); BASOPHIL % 0.3 % (0.1-1.2); Basophil (Absolute #) 0.02 x10^3/uL (0.01-0.08); Eosinophil % 0.2 % (0.7-5.8); Eosinophil (Absolute #) 0.01 x10^3/uL (0.04-0.36); Hematocrit 40.9 % (34.1-44.9); Hemoglobin 12.9 g/dL (11.2-15.7); IMMATURE GRAN # 0.04 x10^3u/L (0.001-0.031); IMMATURE GRAN % 0.6 % (0.001-0.429); Lymphocyte (Absolute #) 1.59 x10^3/uL (1.18-3.74); Lymphocytes % 25.4 % (19.3-51.7); Mean Cell Volume 87.8 fL (79.4-94.8); Mean Corpuscular Hemoglobin 27.7 pg (25.6-32.2); Mean Corpuscular Hgb Concent. 31.5 g/dL (32.2-35.5); Mean Platelet Volume 9.6 fL (9.4-12.3); Monocyte (Absolute #) 0.49 x10^3/uL (0.24-0.86); Monocytes % 7.8 % (4.7-12.5); Neutrophil % 65.7 % (34.0-71.1); Platelet Count 232 x10^3/uL (182-369); Red Blood Count 4.66 x10^6/uL (3.93-5.22); Red Cell Distribution Width 14.3 % (11.7-14.4); White Blood Count 6.3 x10^3/uL (3.98-10.04)
[2025-01-19] MEDS: GI COCKTAIL 45 ML (Maalox/Lidocaine) PO ONE (06:31)
--- NOTE | 2025-01-19 07:59 | XRAY ---
CLINICAL HISTORY: Abdominal pain COMPARISON: CT dated 01/11/2025 TECHNIQUE: Non-contrast CT of the abdomen was performed, with the following protocol: axial images and reconstructed coronal and sagittal images, without intravenous contrast. One of the following dose reduction techniques was utilized for this exam.Automated exposure control, adjustment of the mA and/or kV according to patient size, and use of iterative reconstruction. FINDINGS: Liver: Mildly enlarged in size measuring ~ 17 cm in carniocaudal dimension showing diffuse hypodense parenchyma. No focal lesions, cysts, or masses were identified by non-contrast criteria. No intrahepatic biliary radicle dilation. Gallbladder and Biliary System: The gallbladder is normal in size and shape. No wall thickening, pericholecystic fluid, or gallstones were identified. Pancreas: Pancreatic head, body, and tail are visualized and appear normal in size and density. No pancreatic masses, cysts, or calcifications were noted. The main pancreatic duct is normal size and diameter without dilatation. Spleen: Normal in size, shape, and density. No splenic lesions or masses were identified. Kidneys and Adrenal Glands: Both kidneys are normal in size, shape, and position. Cortical thickness is within normal limits. No renal calculi or hydronephrosis. Adrenal glands are unremarkable. The visualized segments of the small and large bowel loops are average in caliber with no evidence of obstruction. Peritoneal and Retroperitoneal Structures: No free fluid or abnormal fluid collections were identified within the abdomen or pelvis. No lymphadenopathy was noted. IMPRESSION: 1. No acute abnormality identified. 2. Mildly enlarged fatty liver. 3. No significant interval changes. Electronically Signed by: Denisha Ricketts MD. (01/19/2025 07:54:56 EST)
[2025-01-19] MEDS ORDERED: TYLENOL 325 MG ONE (08:33)
[2025-01-19] MEDS ORDERED: Compazine 10 MG/2 ML ONE (08:33)
[2025-01-19] MEDS: Compazine 10 MG/2 ML IV ONE (08:35)
[2025-01-19] MEDS: TYLENOL 325 MG PO ONE (08:36)
[2025-01-19 09:15] LABS: INFLUENZA A NEGATIVE (NEGATIVE); INFLUENZA B NEGATIVE (NEGATIVE); RESPIRATORY SYNCTIAL VIRUS NEGATIVE (NEGATIVE); SARS-CoV-2 Xpert Express NEGATIVE (NEGATIVE)
[2025-01-19 10:49] VITALS: BP 124/83; O2SAT 99
[2025-01-19 11:13] VITALS: PULSE 83; RESP 25
== END 2025-01-19 11:33 | disposition home or self-care (01) ==
LOC: ED 05:03
DX: R10.13 Epigastric pain (principal); R11.0 Nausea; Z79.899 Other long term (current) drug therapy
CPT/HCPCS: 0241U; 36415; 74150; 80053; 82947; 83690; 84484; 85025; 93005; 96374; 96375; 99285; 99284; J2405; A9270-GY

== ENCOUNTER 2025-09-05 04:36 | Emergency (ER) | payer BC ==
[2025-09-05 04:54] VITALS: RESP 18
[2025-09-05 04:57] VITALS: TEMP 97.5
--- NOTE | 2025-09-05 05:06 | ERPHSYRPT ---
- History of Present Illness Time Seen by Provider: 09/05/25 04:50 Source: patient Exam Limitations: no limitations Patient Subjective Stated Complaint: c/o migraine and vomiting Triage Nursing Assessment: patient brought to ED by self with c/o mirgraine that started at midnight. Patient rates pain 6/10, states it is constant and sharp. N/V present, took tylenol at 0100 and pain hasn't subsided. patient is diaphoretic, gait steady, denies head trauma, denies dizziness, patient doesn't appear to be in any distress at this time. Physician History: This is a 20-year-old white female patient who presents to the emergency department with what she described as her migraine headache. However, the pain has lasted a little bit longer than usual. It woke her out of sleep at midnight and at 1:00 o'clock she had been trying geft-cab-veldsys medications without benefit and she had vomited several times so she drove herself to the emergency department. She has light sensitivity. She did not hit her head. She specif ically stated that this migraine headache is not the worst headache she has ever had. Patient has no neck pain. She has no flu symptoms Timing/Duration: today Quality: aching, pressure Head Pain Location: global Severity of Pain-Max: moderate Severity of Pain-Current: mild (To moderate) Recent Head Trauma: occasional headaches Modifying Factors: Improves With: exposure to light, noise Associated Symptoms: nausea/vomiting, sensitive to light, No confusion, No facial pain, No fever/chills, No loss of consciousness, No speech problems, No vision changes, No visual disturbance Previous symptoms: same symptoms as today, no recent treatment Allergies/Adverse Reactions: No Known Drug Allergies Allergy (Verified 09/05/25 04:40) Home Medications: Venlafaxine HCl [Venlafaxine HCl ER] 150 mg PO DAILY 01/11/25 [History] Buspirone HCl 5 mg PO BID 09/05/25 [History] Hx Tetanus, Diphtheria Vaccination/Date Given: Yes Hx Influenza Vaccination/Date Given: No Hx Pneumococcal Vaccination/Date Given: No Travel Risk - International Travel Have you traveled outside of the country in past 3 weeks: No - Emerging Infectious Disease Are you exhibiting symptoms associated with any current EIDs: Yes Symptoms: Headaches/Body Aches/ - Review of Systems Constitutional: No Symptoms Eyes: No Symptoms Ears, Nose, & Throat: No Symptoms Respiratory: No Symptoms Cardiac: No Symptoms Abdominal/Gastrointestinal: No Symptoms Genitourinary Symptoms: No Symptoms Musculoskeletal: No Symptoms, No Neck Pain Skin: No Symptoms Neurological: Headache Psychological: No Symptoms Endocrine: No Symptoms Hematologic/Lymphatic: No Symptoms Immunological/Allergic: No Symptoms All Other Systems: Reviewed and Negative - Past Medical History Pertinent Past Medical History: Yes Neurological History: No Pertinent History ENT History: No Pertinent History Cardiac History: Other Respiratory History: No Pertinent History Endocrine Medical History: No Pertinent History Musculoskeletal History: No Pertinent History GI Medical History: GERD History: No Pertinent History Psycho-Social History: No Pertinent History Female Reproductive Disorders: No Pertinent History Other Medical History: tetralogy of fallot with repair done - Past Surgical History Past Surgical History: Yes Neuro Surgical History: No Pertinent History Cardiac: Other Respiratory: No Pertinent History Gastrointestinal: Cholecystectomy Genitourinary: No Pertinent History Musculoskeletal: No Pertinent History Female Surgical History: Section Other Surgical History: open heart surgery as an , bt shunt , C- Section x 2 - Female History Hx Last Menstrual Period: 2 weeks ago Hx Now: No - Social History Smoking Status: Never smoker Exposure to second hand smoke: No Drug Use: none - Social Determinants of Health Will the patient participate in the screening: Declined to provide - Nursing Vital Signs Nursing Vital Signs: Initial Vital Signs Temperature 97.5 F 09/05/25 04:42 Pulse Rate 88 09/05/25 04:42 Respiratory Rate 18 09/05/25 04:42 Blood Pressure 137/88 09/05/25 04:42 O2 Sat by Pulse Oximetry 98 09/05/25 04:42 Pain Scale Pain Intensity 6 - Physical Exam General Appearance: mild distress, alert, anxiety Eye Exam: PERRL/EOMI, eyes nml inspection Ears, Nose, Throat Exam: normal ENT inspection, moist mucous membranes Neck Exam: normal inspection, non-tender, supple, full range of motion Respiratory Exam: airway intact, No respiratory distress Gastrointestinal/Abdominal Exam: No tenderness Back Exam: normal inspection, normal range of motion, No CVA tenderness, No vertebral tenderness Extremity Exam: normal inspection, normal range of motion, pelvis stable Mental Status Exam: alert, oriented x 3, 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 Exam: normal hearing, normal speech, PERRL, tongue midline Coordination/Gait Exam: normal gait, normal cerebellar function Motor/Sensory Exam: no motor deficit, no sensory deficit Skin Exam: normal color, warm, dry Lymphatic Exam: No adenopathy SpO2 Interpretation: normal SpO2: 99 O2 Delivery: Room Air - Course Nursing assessment & vital signs reviewed: Yes - Progress Progress: improved, re-examined Air Movement: good Progress Note: 09/05/25 05:03 My medical decision making and the assignment of low complexity of this patient's medical issue today is based on review of the patient's past medical history, reviewed patient's medication list, reviewed patient drug allergy list, history present illness and physical findings on examination. The workup in this patient does not necessitate radiographic or laboratory studies. Patient has no flulike symptoms. Patient did not hit her head and it is not the worst headache she has ever had. Differential diagnosis includes but is not limited to viral headache, migraine headache, sinus headache Patient drove herself to the emergency department. She states that she can get a ride home. If she cannot get a ride home then we will provide her with an intramuscular dose of Toradol here in the emergency department and send her home with Compazine pill and a Benadryl capsule. If she can get a ride home we will provide her with Compazine pill and Benadryl capsule as well as injection of Toradol and Dilaudid here in the emergency department. Blood Culture(s) Obtained: No Antibiotics given: No Counseled pt/family regarding: diagnosis, need for follow-up Medical Desision Making - Diagnostic Testing Diagnostic test were ordered, analyzed, and reviewed by me: No - Risk of complications Low Risk: Low risk of morbidity from additional dx testing or treatment - Departure Departure Disposition: Home Clinical Impression: Migraine headache Condition: Stable Critical Care Time: No Referrals: AYLIN BRANHAM MD [Primary Care Provider, UNKNOWN] - Follow up/PCP as directed Additional Instructions: Call your primary care provider today 09/05/2025, to make arrangements for follow-up appointment to be seen in the next 3 to 5 days. Take all your usual medications as prescribed.
[2025-09-05] MEDS ORDERED: BENADRYL 25 MG CAPSULE ONE (05:10)
[2025-09-05] MEDS ORDERED: TORAdol 30 mg Injection ONE (05:10)
[2025-09-05] MEDS ORDERED: Hydromorphone 1 mg/ml Injection ONE (05:10)
[2025-09-05] MEDS: BENADRYL 25 MG CAPSULE PO ONE (05:12)
[2025-09-05] MEDS: Compazine 5 MG PO ONE (05:12)
[2025-09-05] MEDS: TORAdol 30 mg Injection IM ONE (05:13)
[2025-09-05] MEDS: Hydromorphone 1 mg/ml Injection IM ONE (05:14)
[2025-09-05 05:36] VITALS: BP 104/73; PULSE 78; O2SAT 98
== END 2025-09-05 05:44 | disposition home or self-care (01) ==
LOC: ED 04:36
DX: G43.909 Migraine, unspecified, not intractable, without status migrainosus (principal); Z79.899 Other long term (current) drug therapy